=== PATIENT | female | born 1980 | race African-American/Black ===

== ENCOUNTER 2020-03-23 13:02 | Emergency (ER) | payer MEDICAID ==
[~2020-03-23] VITALS: Ht 160 cm; Wt 54.4 kg
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
[2020-03-23 13:28] VITALS: BP 133/86
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
[2020-03-23] MEDS ORDERED: PROMETHAZINE-C118 M1 ORAL (14:25)
[2020-03-23] MEDS ORDERED: TYLENOL EXTRA500 MG ORAL ×2 (14:25→16:02)
[2020-03-23] MEDS ORDERED: ALBUTEROL SULF8.5 G1 INH (14:25)
[2020-03-23] MEDS ORDERED: Methocarbamol 500mg tab ORAL ONE (15:30)
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
[2020-03-23] MEDS ORDERED: ROBAXIN-750750 MG PO (16:02)
[2020-03-23] MEDS ORDERED: LIDODERM700 M1 TOPIC (16:02)
[2020-03-23 16:45] VITALS: BP 132/85
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
== END 2020-03-23 16:45 | disposition home or self-care (01) ==
LOC: EMR 13:51
DX: S39.012A Strain of muscle, fascia and tendon of lower back, initial encounter (principal); F07.81 Postconcussional syndrome; V43.52XA Car driver injured in collision with other type car in traffic accident, initial encounter; Y93.9 Activity, unspecified; Y92.411 Interstate highway as the place of occurrence of the external cause
CPT/HCPCS: 70450; 72131; Z7502; 99284